=== PATIENT | female | born 1965 | race African-American/Black ===

== ENCOUNTER 2019-07-04 12:48 | Inpatient (IN) | payer OTHER | END 2019-07-07 15:19 | disposition other institution (70) | LOC: YASAS 12:48 → Y6N 16:53 ==

== ENCOUNTER 2019-07-07 14:42 | Inpatient (IN) | payer OTHER | END 2019-07-09 09:48 | disposition home or self-care (01) | LOC: YASAS 14:42 → Y3E 14:43 ==